=== PATIENT | female | born 1935 | race Caucasian/White ===

== ENCOUNTER 2019-05-14 17:54 | Inpatient (IN) | payer MEDICARE, OTHER ==
[~2019-05-14] VITALS: Ht 170.2 cm; Wt 83.5 kg
--- NOTE | 2019-05-14 18:20 | NUR ---
CLARIFIED NEED FOR 2 LARGE BORE PIVS PATIENT QUITE STABLE AND BLEEDING STABLE- DR. MOREJON REPORTS AUTO POPULATE ORDER-PATIENT ONLY NEED 1 LARGE BORE PIV
[2019-05-14] MEDS ORDERED: PANTOPRAZOLE 40 MG IV IVPush ONE (18:30)
[2019-05-14] MEDS ORDERED: PANTOPRAZOLE 40 MG IV ONE (19:01)
[2019-05-14 19:02] LABS: INTERNATIONAL NORMALIZED RATIO 0.93 (0.93-1.1); PROTHROMBIN TIME 9.9 Seconds (9.6-11.5)
[2019-05-14 19:04] LABS: ALBUMIN 3.1 g/dL (3.4-5.0); ANION GAP 7 mmol/L (5-15); BASOPHILS # (AUTO) 0.04 x10^3/uL (0-0.1); BASOPHILS % (AUTO) 1 % (0-1); CALCIUM 8.6 mg/dL (8.5-10.1); CHLORIDE 108 mmol/L (98-107); EOSINOPHILS # (AUTO) 0.05 x10^3/uL (0-0.4); EOSINOPHILS % (AUTO) 1 % (1-7); LYMPHOCYTES # (AUTO) 0.89 x10^3/uL (1-3.4); LYMPHOCYTES % (AUTO) 16 % (22-44); MD NO; MEAN CORPUSCULAR HEMOGLOBIN 30.2 pg (27.0-34.8); MEAN CORPUSCULAR HGB CONC 33.3 g/dL (32.4-35.8); MEAN CORPUSCULAR VOLUME 90.7 fL (80-100); MEAN PLATELET VOLUME 8.6 fL (7.4-10.4); MONOCYTES # (AUTO) 0.35 x10^3/uL (0.2-0.8); MONOCYTES % (AUTO) 6 % (2-9); NEUTROPHILS # (AUTO) 4.13 x10^3/uL (1.8-6.8); NEUTROPHILS % (AUTO) 76 % (42-75); PLATELET COUNT 281 x10^3/uL (130-400); RED BLOOD COUNT 4.41 x10^6/uL (3.82-5.3); RED CELL DISTRIBUTION WIDTH 13.2 % (9.6-15.2)
[2019-05-14] MEDS ORDERED: LEVO75TA PO (19:06)
--- NOTE | 2019-05-14 19:15 | NUR ---
MEDICATED PER EMAR VITALS UPDATED-REMAINS STABLE PATIENT WITHOUT COMPLAINTS, NO BM SINCE ADMISSION UPDATED ON ESTIMATED POC BEDSIDE REPORT TO SHIRA JOHNSON
[2019-05-14] MEDS ORDERED: GOLYTELY 4,000ML ORAL.SOL PO ONE ×2 (20:00→22:00)
[2019-05-14 20:40] VITALS: BP 154/83
[2019-05-14] MEDS ORDERED: MELATONIN 3 MG TABLET PO PRN (22:00)
[2019-05-14] MEDS ORDERED: ACETAMINOPHEN 325 MG TABLET PO PRN (22:00)
[2019-05-14] MEDS ORDERED: ENALAPRILAT 1.25 MG/ML, 2ML IVPush PRN (22:00)
[2019-05-15 01:04] VITALS: BP 152/88
[2019-05-15 04:26] LABS: BASOPHILS # (AUTO) 0.05 x10^3/uL (0-0.1); BASOPHILS % (AUTO) 1 % (0-1); EOSINOPHILS # (AUTO) 0.06 x10^3/uL (0-0.4); EOSINOPHILS % (AUTO) 1 % (1-7); LYMPHOCYTES % (AUTO) 14 % (22-44); MD NO; MEAN CORPUSCULAR HGB CONC 33.3 g/dL (32.4-35.8); MEAN CORPUSCULAR VOLUME 90.1 fL (80-100); MEAN PLATELET VOLUME 8.7 fL (7.4-10.4); MONOCYTES # (AUTO) 0.43 x10^3/uL (0.2-0.8); MONOCYTES % (AUTO) 6 % (2-9); NEUTROPHILS # (AUTO) 5.74 x10^3/uL (1.8-6.8); NEUTROPHILS % (AUTO) 79 % (42-75); PLATELET COUNT 266 x10^3/uL (130-400); RED BLOOD COUNT 4.44 x10^6/uL (3.82-5.3)
[2019-05-15 04:27] LABS: ANION GAP 9 mmol/L (5-15); CALCIUM 8.7 mg/dL (8.5-10.1); CHLORIDE 108 mmol/L (98-107)
[2019-05-15] MEDS ORDERED: POTASSIUM CHLORIDE 10% 20 MEQ/15 ML UDC PO ONE (05:30)
[2019-05-15 07:09] VITALS: BP 134/82
[2019-05-15] MEDS ORDERED: PANTOPRAZOLE 40 MG IV IVPush SCH (07:30)
[2019-05-15] MEDS ORDERED: LIDOCAINE-MPF 2% ,5ML ONE (09:10)
[2019-05-15] MEDS ORDERED: SUCCINYLCHOLINE 20 MG/ML, 10ML ONE (09:10)
[2019-05-15] MEDS ORDERED: PROPOFOL 10 MG/ML, 20ML ONE (09:10)
[2019-05-15] MEDS ORDERED: PROMETHAZINE 25 MG/ML, 1ML IV PRN (09:30)
[2019-05-15] MEDS ORDERED: HYDROmorphone 2 MG/ML, 1ML IVPush PRN (09:30)
[2019-05-15] MEDS ORDERED: ONDANSETRON 2MG/ML, 2ML IV PRN (09:30)
[2019-05-15] MEDS ORDERED: OXYcodone 5 MG/5 ML ORAL.SOL UDC PO PRN (09:30)
[2019-05-15] MEDS ORDERED: LABETALOL 5MG/ML, 20ML IV PRN (09:30)
[2019-05-15] MEDS ORDERED: EPHEDRINE 50 MG/ML, 1ML IVPush PRN (09:30)
[2019-05-15] MEDS ORDERED: ACETAMINOPHEN 325 MG TABLET PO PRN (09:30)
[2019-05-15] MEDS ORDERED: FENTANYL PF 100 MCG/2ML IV PRN (09:30)
[2019-05-15] MEDS ORDERED: MEPERIDINE/PF 25MG/ML,1ML IVPush PRN (09:30)
[2019-05-15] MEDS ORDERED: hydrALAzine 20 MG/ML, 1ML IV PRN (09:30)
[2019-05-15] MEDS ORDERED: ONDANSETRON 2MG/ML, 2ML ONE ×3 (10:28)
[2019-05-15] MEDS ORDERED: DEXAMETHASONE 4 MG/ML, 1ML ONE ×2 (10:28)
[2019-05-15] MEDS ORDERED: FENTANYL PF 100 MCG/2ML ONE (10:38)
[2019-05-15 12:15] VITALS: BP 123/71
[2019-05-15] MEDS ORDERED: HYDR25SU3 RC (12:29)
== END 2019-05-15 18:00 | disposition home or self-care (01) | DRG 395 ==
LOC: ED 18:26 → EDIP 19:35 → 3N 20:20
PROVIDERS: ADMIT Family Medicine; ATTEND Family Medicine
PROC: 0DBP8ZZ Excision of Rectum, Via Natural or Artificial Opening Endoscopic (ICD-10-PCS; principal; 2019-05-15 10:00)
DX: K64.8 Other hemorrhoids (principal); E03.9 Hypothyroidism, unspecified; E87.6 Hypokalemia; E88.09 Other disorders of plasma-protein metabolism, not elsewhere classified; K62.1 Rectal polyp; K63.5 Polyp of colon; K57.90 Diverticulosis of intestine, part unspecified, without perforation or abscess without bleeding; Z66 Do not resuscitate; Z80.0 Family history of malignant neoplasm of digestive organs; Z83.3 Family history of diabetes mellitus; Z87.891 Personal history of nicotine dependence
CPT/HCPCS: 36415; 80048; 82040; 85025; 85610; 85730; 86850; 86900; 88305; 93005; 99285; G0378; J1100; J2405; J2704; J3010; C9113; J0330